=== PATIENT | female | born 1970 | race Caucasian/White ===

== ENCOUNTER 2019-01-22 06:20 | Day surgery (SDC) | payer MEDICAID ==
[~2019-01-22] VITALS: Ht 167.6 cm; Wt 68.6 kg
[~2019-01-22 06:20] MED LIST: SODIUM CHLORIDE 0.9% 1,000 ML IV ONE
[2019-01-22] MEDS ORDERED: LIDOCAINE 4% 50 ML SOLUTION TP ONE (06:21)
[2019-01-22] MEDS ORDERED: BENZOCAINE 20% 50 MCG/SPRAY 57 GM TP ONE (06:21)
[2019-01-22] MEDS ORDERED: LIDOCAINE 2% 30 ML JELLY TP ONE (06:21)
[2019-01-22] MEDS ORDERED: ALBUTEROL SULFATE 2.5 MG/0.5 ML NEB SOLUTION NEB ONE (06:21)
[2019-01-22] MEDS ORDERED: SODIUM CHLORIDE 0.9% 1,000 ML IV ONE (06:30)
[2019-01-22 07:20] LABS: GLUCOMETER DEV NAME(LOC) SDS.; GLUCOSE,POINT OF CARE 229 MG/DL (70-110)
[2019-01-22] MEDS ORDERED: LEVO125 PO (07:27)
[2019-01-22] MEDS ORDERED: METF-960 PO (07:27)
[2019-01-22] MEDS ORDERED: FentaNYL CITRATE-PF 100 MCG/2 ML VIAL ONE (08:00)
[2019-01-22] MEDS ORDERED: MIDAZOLAM HCL 2 MG/2 ML VIAL ONE (08:00)
[2019-01-22] MEDS ORDERED: MethylPREDNISolone SOD SUCC 125 MG/2 ML VIAL IVP ONE (09:00)
[2019-01-22] MEDS ORDERED: OXYGEN THERAPY IH SCH (20:00)
== END 2019-01-22 10:45 | disposition home or self-care (01) ==
LOC: SURGERY 06:20
PROVIDERS: ATTEND Internal Medicine Critical Care Medicine
DX: J38.4 Edema of larynx (principal); B37.0 Candidal stomatitis; E11.9 Type 2 diabetes mellitus without complications
CPT/HCPCS: 31623; 31624; 71045; 82962; 84703; 87015; 87070; 87101; 87205; 87206; 87220; 88108; 88312; J2250; J2930; J3010; J7030